=== PATIENT | female | born 1940 | race Caucasian/White ===

== ENCOUNTER 2018-06-02 07:59 | Day surgery (SDC) | payer MEDICARE, MEDICAID ==
[~2018-06-02] VITALS: Ht 160 cm; Wt 83.9 kg
[2018-06-02] VITALS (8 sets, daily range): BP systolic 107–147; BP diastolic 53–84
--- NOTE | 2018-06-02 08:09 | Anethesia Preoperative Eval ---
Anesthesia Pre-op PMH/ROS General Date of Evaluation: Jun 02, 2018 Time of Evaluation: 08:42 Anesthesiologist: Shaylee Gonzales CRNA ASA Score: ASA 3 Mallampati Score Class I : Soft palate, uvula, fauces, pillars visible Class II: Soft palate, uvula, fauces visible Class III: Soft palate, base of uvula visible Class IV: Only hard plate visible Mallampati Classification: Class II Surgeon: Kathi Diagnosis: Andominal pain, GERD Surgical Procedure: EGD diagnostic, colonoscopy Anesthesia History: none Family History: no anesthesia problems Allergies: Coded Allergies: PENICILLINS (Verified Allergy, Severe, 06/01/18) RASHES AND ITCHING STRAWBERRY (Verified Allergy, Intermediate, rash; itching, 06/02/18) Medications: see eMAR Patient NPO?: Yes NPO Date: Jun 02, 2018 NPO Time: 00:00 Past Medical History Cardiovascular: Reports: HTN, other - hypercholesterolemia; Denies: CAD, RI, valve dz, arrhythmia Pulmonary: Reports: asthma; Denies: COPD, CAROLE, other Gastrointestinal/Genitourinary: Denies: GERD, CRI, ESRD, other Neurologic/Psychiatric: Denies: dementia, CVA, depression/anxiety, TIA, other Endocrine: Denies: DM, hypothyroidism, steroids, other HEENT: Reports: cataract (L), cataract (R); Denies: glaucoma, [place] (L), [place] (R), other Hematology/Immune: Denies: anemia, DVT, bleeding disorder, other Musculoskeletal/Integumentary: Reports: OA, DJD; Denies: RA, DDD, edema, other Other: obesity PMH Narrative: as above PSxH Narrative: (B) cataract, (B) knee surgery Anesthesia Pre-op Phys. Exam Physician Exam Vital Sign - Last 24 Hours 06/02/18 06/02/18 08:36 08:52 Temp 97.0 Pulse 64 Resp 18 B/P (MAP) 147/64 Pulse Ox 99 O2 Delivery Room Air Room Air Constitutional: NAD Neurologic: CN 2-12 intact Cardiovascular: RRR Respiratory: CTA Gastrointestinal: S/NT/ND Airway Exam Mallampati Score: Class II MO: full Neck: From TMD: > 3 FB ROM: full Teeth: missing Dentures: lower - partial; no upper Anesthesia Pre-op A/P Risk Assessment & Plan Assessment: ASA 3, ok to proceed Plan: MAC Status Change Before Surgery: Yes Pre-Antibiotics Given Within 1 Hr of Incision: No Shaylee Gonzales CRNA Jun 02, 2018 08:09
--- NOTE | 2018-06-02 08:38 | Short Stay Surgery H&P ---
History of Present Illness History of Present Illness Chief Complaint Abdominal pains/screening colonoscopy HPI Kiara Cordova is a 77 year old female who was admitted on for Abdominal Pain/Gerds/screening colon Patient History Allergies: Coded Allergies: PENICILLINS (Verified Allergy, Severe, 06/01/18) RASHES AND ITCHING STRAWBERRY (Verified Allergy, Intermediate, rash; itching, 06/02/18) PAST MEDICAL HISTORY: (1) Hypertension (2) Hyperlipidemia (3) Asthma (4) Hemorrhoids Review of Systems Cardiovascular: Reports: no symptoms Respiratory: Reports: no symptoms Skeletal: Reports: no symptoms Gastrointestinal: Reports: gastro esophageal reflux disease Genitourinary: Reports: no symptoms Neurologic: Reports: no symptoms Endocrine: Reports: no symptoms Hematologic: Reports: no symptoms Physical Exam Skin: normal HENT: normal Heart: normal Lungs: normal Abdomen: normal Extremities: normal Genitourinary: normal Plan Plan of Care Upper and lower GI.endoscopies. Preop Interventions None. Summary of Findings See the reports Attestation Are the patient's medical conditions optimized for surgery? Attestation Response: yes Shruthi Armenta MD Jun 02, 2018 08:38
--- NOTE | 2018-06-02 08:40 | Pre-Procedure Note/Attestation ---
Pre-Procedure Note/Attestation Complete Prior to Procedure Planned Procedure: left Procedure Narrative: Examination of the upper and lower GI tract via endoscopic exam. Indications for Procedure Pre-Operative Diagnosis: R/O gastritis/esophagitis/colon polyp/tumor. Attestation I attest that I discussed the nature of the procedure; its benefits; risks and complications; and alternatives (and the risks and benefits of such alternatives ), prior to the procedure, with the patient (or the patient's legal packaging sales representative). I attest that, if there was a reasonable possibility of needing a blood transfusion, the patient (or the patient's legal packaging sales representative) was given the [place] [facility] [employer] [facility] standardized written summary, pursuant to the [place] Blood Safety Act ([place] Health and Safety Code # 1645, as amended). I attest that I re-evaluated the patient just prior to the surgery and that there has been no change in the patient's H&P, except as documented below: Shruthi Armenta MD Jun 02, 2018 08:40
[2018-06-02] MEDS ORDERED: ZYRTEC10 MG ORAL (08:41)
[2018-06-02] MEDS ORDERED: NEXIUM40 MG ORAL (08:42)
[2018-06-02] MEDS ORDERED: BENICAR HCT 201 EACH ORAL (08:42)
[2018-06-02] MEDS ORDERED: ZOCOR20 M1 ORAL (08:43)
[2018-06-02] MEDS ORDERED: CELEBREX100 MG ORAL (08:44)
[2018-06-02] MEDS ORDERED: COMBIGAN EYE DRO5 ML OP (08:45)
[2018-06-02] MEDS ORDERED: RHOPRESSA2.5 ML OP (08:47)
[2018-06-02] MEDS ORDERED: LUMIGAN2.5 ML BOTH EYES (08:47)
[2018-06-02] MEDS ORDERED: LR 1000ml ONE (09:00)
[2018-06-02] MEDS ORDERED: Propofol 200mg/20ml IV ONE (09:00)
[2018-06-02] MEDS ORDERED: Lidocaine 1% MPF 10mg/ml 5ml ONE (09:00)
--- NOTE | 2018-06-02 09:23 | Endoscopy Procedure Note ---
Endoscopy Procedure Note General Indication for Procedure: Abdominal pains/screening colo Procedures Performed: EGD - Mild gastritis with bile in stomac. 2 mm hyperplastic polyp in mid stomach removed via cold biopsy forceps. Biopsy also done per random from mid stomac., colonoscopy - Minimal internal hemorrhoids, generalized diverticulosis. 3mm pendenculated polyp removed from rectosig. angle via hot snare Specimen: yes Pt Tolerated Procedure Well: Yes Estimated Blood Loss: none Anesthesia Anesthesiologist: Ms. Gonzales/JOSE JUAN Anesthesia: moderate sedation Medications Medication Given: see anesthesia record Inserted Devices Implant(s) used?: No Quality Quality of Bowel Preparation: Excellent Was there any complications?: No GI Core Measures 50 yrs or older w/o bx or poly: Yes 10yrs. F/U not recommended: No If not recommended, why?: Above average risk 10 yrs. F/U needed: No 18 years or older w/prev. colo: No <3yrs. since last colonoscopy: No Med reason:<3 yrs.: System Reason:<3 yrs.: Last colonoscopy >= to 3yrs: Yes Shruthi Armenta MD Jun 02, 2018 09:23
--- NOTE | 2018-06-02 09:26 | Discharge Instructions ---
Discharge Instructions Discharge Instructions Follow up with: Go to the doctor's office after 2 weeks, call first For Congestive Heart Failure Reminder Report to your physician any weight gain of 5 pounds or more in one week. Shruthi Armenta MD Jun 02, 2018 09:25
--- NOTE | 2018-06-02 09:33 | Immediate Post-Op Evaluation ---
Immediate Post-Op Evalulation Immediate Post-Op Evalulation Procedure: EGD, colonoscopy, polypectomy Date of Evaluation: Jun 02, 2018 Time of Evaluation: 09:24 IV Fluids: LR 600 ml Blood Pressure Systolic: 115 Blood Pressure Diastolic: 60 Pulse Rate: 54 Respiratory Rate: 14 O2 Sat by Pulse Oximetry: 98 Temperature (Fahrenheit): 98.0 Pain Score (1-10): 0 Nausea: No Vomiting: No Complications none Patient Status: awake, reacts, patent Hydration Status: adequate Given Within 1 Hr of Incision: Shaylee Brown CRNA Jun 02, 2018 09:33
--- NOTE | 2018-06-02 12:20 | 48 Hour Post Anesthesia Eval ---
Post Anesthesia Evaluation Procedure: EGD, colonoscopy, polypectomy Date of Evaluation: Jun 02, 2018 Time of Evaluation: 12:19 Blood Pressure Systolic: 122 0: 84 Pulse Rate: 60 Respiratory Rate: 18 Temperature (Fahrenheit): 98.3 O2 Sat by Pulse Oximetry: 96 Airway: patent Nausea: No Vomiting: No Pain Intensity: 0 Hydration Status: adequate Cardiopulmonary Status: stable Mental Status/LOC: patient returned to baseline Follow-up Care/Observations: per GI Post-Anesthesia Complications: none Follow-up care needed: N/A Shaylee Gonzales CRNA Jun 02, 2018 12:20
--- NOTE | 2018-06-02 16:30 | Operative Note - Dictated ---
DATE OF OPERATION: 06/02/2018 SURGEON: Shruthi Armenta M.D. PROCEDURE: Esophagogastroduodenoscopy with biopsy. PREOPERATIVE DIAGNOSES: 1. Abdominal pain. 2. History of gastroesophageal reflux. POSTOPERATIVE DIAGNOSES: 1. Evidence of bile in the stomach and 2 mm hyperplastic polyp was removed from mid body of the stomach with cold snare. A random biopsy from gastric body was also done. 2. Hiatal hernia and mild gastritis. MEDICATION USED: Per Ms. Janet CRNA. INSTRUMENT: GIF Olympus upper GI video endoscope. DESCRIPTION OF PROCEDURE: The patient, after arriving in the endoscopy unit, was told about risks and benefits of the procedure, which she accepted and signed informed consent. She was then put on the left lateral decubitus position. After adequate IV sedation, scope was gently passed through the cricopharyngeal area, was lodged into the upper esophagus and gradually advanced towards gastroesophageal junction. The entire length of the esophagus looked normal. No evidence of any pathology such as ulcers, stricture, tumor, exudate, etc. was found. GE junction also looked normal except the presence of a small hiatal hernia but no Varner's. At this time, the scope was advanced into the stomach. Gastric cavity was distended with insufflation of air revealing evidence of minimal amount of bile in the stomach consistent with duodenogastric bile reflux. The underlying mucosa showed evidence of mild erythema consistent with possible mild gastritis, which could have been secondary to the presence of bile. An incidental finding was that there was a 2 mm hyperplastic type of polyp in the anterior wall of the midbody of the stomach, which was removed with cold biopsy forceps. It looked quite benign. The scope at this time was gradually advanced toward antrum from there into the pylorus. First and second portion of duodenum were examined and they all looked normal. Finally, the scope was pulled back into the stomach. A retroflexion maneuver was applied and the area of the gastroesophageal junction was examined in a closer fashion, which revealed no other pathology. At this point, the scope was pulled out and the procedure was terminated. The patient tolerated the procedure well. Shruthi Armenta M.D. DR: ROSSANA JOB#: [id number] CC:
--- NOTE | 2018-06-02 16:45 | Operative Note - Dictated ---
DATE OF OPERATION: 06/02/2018 SURGEON: Shruthi Armenta M.D. PROCEDURE: Total colonoscopy with polypectomy. PREOPERATIVE DIAGNOSIS: Screening colonoscopy. POSTOPERATIVE DIAGNOSES: 1. Evidence of minimal internal hemorrhoids and small tags outside the rectum. 2. Generalized diverticulosis of the colon. 3. Presence of 0.5 cm pedunculated polypoid lesion over the rectosigmoid angle, which was removed with hot snare, otherwise complete normal total colonoscopy. MEDICATION USED: Per Ms. Janet CRNA. INSTRUMENT: GIF Olympus video colonoscope. DESCRIPTION OF PROCEDURE: The patient after arriving an endoscopy unit, was told about risks and benefits of the procedure, which she accepted and signed informed consent. She was then put on the left lateral decubitus position. A scope was gradually advanced into the anal area, which revealed evidence of a small hemorrhoidal tags of no great significance. A retroflexion maneuver was also applied in the rectum, which revealed evidence of minimal internal hemorrhoids that they were not friable. At this time, the scope was passed further into the rather redundant left colon revealing presence of 0.5 cm pedunculated polypoid lesion at the rectosigmoid angle, which looked quite benign and later, it was removed with a snare cautery forceps and there was no bleeding at the site of the polypectomy. The scope at this time finally pushed into the descending colon, revealing numerous diverticular lesions all the way to the right side of the colon consistent with generalized diverticulosis. However, there was no any other pathologies such as colitis, further polyps etc. found during the process of the scope being advanced towards the cecum. Upon reaching to the ileocecal valve and evaluation of cecum, which were all benign looking and no pathology was found. Within 7 minutes, the scope was gradually pulled out and no other conditions were found. The colon cleanup was adequate and excellent. The patient tolerated the procedure well left the endoscopy room in a good condition. Shruthi Armenta M.D. DR: /HARJINDER JOB#: [id number] CC:
== END 2018-06-02 10:45 | disposition home or self-care (01) ==
LOC: GAS 07:59
DX: Z12.11 Encounter for screening for malignant neoplasm of colon (principal); K64.8 Other hemorrhoids; K57.90 Diverticulosis of intestine, part unspecified, without perforation or abscess without bleeding; K29.70 Gastritis, unspecified, without bleeding; B96.81 Helicobacter pylori [H. pylori] as the cause of diseases classified elsewhere; K44.9 Diaphragmatic hernia without obstruction or gangrene; K31.7 Polyp of stomach and duodenum; I10 Essential (primary) hypertension; D12.5 Benign neoplasm of sigmoid colon; E78.5 Hyperlipidemia, unspecified; Z88.0 Allergy status to penicillin; Z91.018 Allergy to other foods; K21.9 Gastro-esophageal reflux disease without esophagitis; E78.00 Pure hypercholesterolemia, unspecified; M19.90 Unspecified osteoarthritis, unspecified site
CPT/HCPCS: 43239; 45385; J2704; 94003; 94150